=== PATIENT | female | born 1975 ===

== ENCOUNTER 2017-03-21 04:35 | Inpatient (IN) | payer BC ==
[2017-03-21] MEDS ORDERED: Dibucaine 1% 28.35 GM TUBE PR PRN (04:53)
[2017-03-21] MEDS ORDERED: Glycerin ADULT SUPP PR PRN (04:53)
[2017-03-21] MEDS ORDERED: Acetaminophen TAB* 325 MG PO PRN (04:53)
[2017-03-21] MEDS ORDERED: Witch Hazel PAD* JAR TOPICAL PRN (04:53)
[2017-03-21] MEDS: Ibuprofen TAB* 600 MG PO PRN ×3 (06:08→18:42)
[2017-03-21] MEDS ORDERED: Simethicone TAB* 80 MG TAB.CHEW PO SCH (08:30)
[2017-03-21] MEDS: Docusate CAP* 100 MG PO SCH ×3 (09:00→20:26)
[2017-03-22] MEDS: Ibuprofen TAB* 600 MG PO PRN (00:58)
[2017-03-22 07:13] LABS: Hematocrit 31 % (35-47); Hemoglobin 10.3 g/dl (12.0-16.0); Mean Corpuscular HGB Conc 33 g/dl (31-36); Mean Corpuscular Hemoglobin 30 pg (27-31); Mean Corpuscular Volume 90 fL (80-97); Mean Platelet Volume 9 um3 (7.4-10.4); Red Blood Count 3.46 10^6/ul (4.0-5.4); Red Cell Distribution Width 15 % (10.5-15)
[2017-03-22 07:14] LABS: Comments Flag Yes
[2017-03-22 08:01] VITALS: BP 105/60
[2017-03-22] MEDS ORDERED: Ferrous Gluconate TAB* 324 MG TAB PO SCH (09:00)
[2017-03-22] MEDS: Docusate CAP* 100 MG PO SCH ×2 (09:16→14:07)
== END 2017-03-22 15:15 | disposition home or self-care (01) | DRG 560 ==
LOC: MCHOBOUT 04:35 → MCHOB 04:36
PROVIDERS: ADMIT Midwife; ATTEND Obstetrics & Gynecology
PROC: 10E0XZZ Delivery of Products of Conception, External Approach (ICD-10-PCS; principal; 2017-03-21)
PROC: 0KQM0ZZ Repair Perineum Muscle, Open Approach (ICD-10-PCS; 2017-03-21)
DX: O70.1 Second degree perineal laceration during delivery (principal); Z37.0 Single live birth; Z3A.39 39 weeks gestation of pregnancy
CPT/HCPCS: 36415; 85025; 99211; A9270-GY; G0463